=== PATIENT | female | born 1980 | race Caucasian/White ===

== ENCOUNTER → 2024-01-29 | Outpatient (REF) | payer BC | LOC: M LAB REF 16:35 | PROVIDERS: ATTEND Physician Assistant | DX: B34.9 Viral infection, unspecified (principal) ==

== ENCOUNTER → 2025-10-07 | Outpatient (REF) | LOC: M EMP 15:00 | PROVIDERS: ATTEND Family Medicine | DX: Z01.89 Encounter for other specified special examinations (principal) ==

== ENCOUNTER → 2025-10-07 | Outpatient (REF) | LOC: M EMP 15:19 | PROVIDERS: ATTEND Family Medicine | DX: Z11.52 Encounter for screening for COVID-19 (principal) ==